=== PATIENT | female | born 1970 | race Caucasian/White ===

== ENCOUNTER 2025-04-14 19:29 | Emergency (ER) | payer BC ==
[~2025-04-14] VITALS: Ht 160 cm; Wt 72.7 kg
[2025-04-14 20:25] LABS: MEAN PLATELET VOLUME 8.1 FL (7.4-10.4); RED CELL DISTRIBUTION WIDTH 13.0 % (11.5-14.5)
[2025-04-14 20:50] LABS: CREATININE 0.76 MG/DL (0.40-0.90); PRO BRAIN NATRIURETIC PEPTIDE 48 PG/ML (0-125); TOTAL CARBON DIOXIDE 30.3 MMOL/L (24-32); eCRCL 70 ML/MIN; eGFR 79 ML/MIN
[2025-04-14 21:36] VITALS: TEMP 97.6
[2025-04-14] MEDS: LIDOcaine 2% Viscous 15ml cup MM ONE (23:13)
[2025-04-14] MEDS: mag hydrox/Alum hydrox/simeth 30ml oral suspension PO ONE (23:14)
--- NOTE | 2025-04-14 23:38 | Physician Documentation ---
History of Present Illness ~ Chief Complaint: Chest Pain Stated Complaint: CHEST PAIN Time Seen by MD: 21:11 [facility] 54-year-old female presented to the ED with acute chest wall pain. She denied significant past medical history and reported recent initiation of gym-based physical activity. Pain was described as localized, reproducible with palpation, and without associated dyspnea, diaphoresis, syncope, or other concerning features. 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 Allergies: Coded Allergies: No Known Allergies (Unverified , 04/14/25) Active Prescriptions See Medication Reconciliation Form. Review of Systems ROS As stated above in the HPI, otherwise all systems are reviewed and negative. Physical Exam Vital Signs: Temperature: 97.6, Source: Temporal, Heart Rate: 82, Respiratory Rate: 17, BP: 159/86, Pulse Oximetry: 99, Weight: 72.700 Oxygen Flow Rate: 0 Physical Exam VITALS: Reviewed and as above. GENERAL: Alert, no apparent distress. HEENT: Normocephalic, atraumatic, PERRL, EOMI, dry mucosa, no erythema RESPIRATORY: Lungs clear, normal breath sounds, no respiratory distress. CHEST: No accessory muscle use, no retractions CV: Regular rate, rhythm, no edema, no murmur, No: JVD GI: Soft, non-tender, bowels sounds present, no rebound, guarding, or rigidity BACK: No CVA tenderness, or swelling MUSCULOSKELETAL No deformities, no edema SKIN: Warm and dry, no rash NEURO: Oriented x4, No motor or sensory deficit PSYCH: Normal mood and affect, no agitation Progress Results/Orders Results/Orders Completed Orders - BERNIE MOLINA Acetaminophen 325mg Tablet (Tylenol Tabl (04/14/25 21:55) Medications Received in ER Medications (Trade) Dose Ordered Sig/Roge Route PRN Reason Start Time Stop Time Status Last Admin Dose Admin (Xylocaine 2% Viscous 15mL cup) 15 ml ONCE ONCE MM 04/14/25 22:05 04/14/25 22:06 DC 04/14/25 23:13 15 ML (Maalox oral suspension) 30 ml ONCE ONCE PO 04/14/25 22:05 04/14/25 22:06 DC 04/14/25 23:14 30 ML (Tylenol tablet) 975 mg ONCE ONCE PO 04/14/25 21:55 04/14/25 22:07 DC 04/14/25 23:13 975 MG Vital Signs 04/14/25 04/14/25 19:51 21:36 Temp 97.6 97.6 Pulse 90 82 Resp 15 17 B/P (MAP) 175/76 159/86 (110) Pulse Ox 99 99 O2 Flow Rate 0 Laboratory Tests Test 04/14/25 20:08 04/14/25 22:12 White Blood Count 6.8 Red Blood Count 4.79 Hemoglobin 14.2 Hematocrit 41.7 Mean Corpuscular Volume 87.0 Mean Corpuscular Hemoglobin 29.6 Mean Corpuscular Hemoglobin Concent 34.0 Red Cell Distribution Width 13.0 Platelet Count 272 Mean Platelet Volume 8.1 Neutrophils (%) (Auto) 54.3 Lymphocytes (%) (Auto) 34.5 Monocytes (%) (Auto) 6.8 Eosinophils (%) (Auto) 3.6 Basophils (%) (Auto) 0.8 Neutrophils # (Auto) 3.7 Lymphocytes # (Auto) 2.3 Monocytes # (Auto) 0.5 Eosinophils # (Auto) 0.2 Basophils # (Auto) 0.1 CBC Comment Sodium Level 142 Potassium Level 3.5 Chloride Level 104 Carbon Dioxide Level 30.3 Anion Gap 8 Blood Urea Nitrogen 13 Creatinine 0.76 Estimated GFR/1.73 m2 79 BUN/Creatinine Ratio 17.1 Glucose Level 201 H Calcium Level 9.0 Troponin I High Sensitivity < 4 L 4 Troponin I High Sens Percent Delta Troponin I Hi Sens Absolute Change Pro-B-Type Natriuretic Peptide 48 Albumin 3.9 Chemistry Comments Medical Decision Making Additional information obtaine: other Findings 54-year-old female presented to the ED with acute chest wall pain. She denied significant past medical history and reported recent initiation of gym-based physical activity. Pain was described as localized, reproducible with palpation, and without associated dyspnea, diaphoresis, syncope, or other concerning features. 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 Initial evaluation focused on rapid exclusion of life-threatening etiologies per ACC/AHA guidelines. Serial high-sensitivity troponins were negative, as were all laboratory studies. 12-lead ECG showed no ischemic changes. Patient is a heart score of 1 at this time. Chest X-ray was unremarkable, with no evidence of pulmonary, pleural, or bony pathology. Physical exam revealed chest wall tenderness, supporting a musculoskeletal etiology. Given the absence of cardiac, pulmonary, or gastrointestinal red flags, and a negative cardiac workup, the diagnosis of musculoskeletal chest wall strain secondary to recent physical activity was established. The patient received a GI cocktail to assess for gastrointestinal discomfort and acetaminophen for analgesia. Ketorolac was withheld due to multiple pre-arrival doses of aspirin, in accordance with FDA guidance to avoid increased bleeding risk with concomitant NSAID and aspirin use. Disposition: Per ACC consensus, low-risk patients with negative cardiac evaluation may be safely discharged without further cardiac testing. The patient was counseled on conservative management, including rest, acetaminophen as needed, and gradual return to activity. She was advised to follow up with her PCP or absence management consultant within 14-30 days for continuity of care. Return precautions for worsening pain, new symptoms, or signs of cardiac/respiratory compromise were discussed. Summary: This case demonstrates evidence-based exclusion of acute coronary syndrome and other life-threatening causes, with diagnosis and management of musculoskeletal chest wall pain per current guidelines. Differential Dx:Considerations: Include: Chest wall contusion, Flail chest, Myocardial contusion, Pneumothorax, Pulmonary contusion, Rib fracture, Renal contusion, Splenic fracture, Tension pneumothorax, Other Departure Disposition: 01 HOME / SELF CARE / HOMELESS Impression: Primary Impression: Chest pain Additional Impressions: Chest wall pain Musculoskeletal pain Condition: Stable Discharge Instructions: Chest Wall Pain, Musculoskeletal Pain Additional Instructions: You were evaluated in the emergency department for chest pain. After a thorough assessment, including blood tests, an EKG (heart tracing), and a chest X-ray, your pain was diagnosed as musculoskeletal chest wall strain, likely related to recent physical activity. No signs of heart attack or other serious heart problems were found. Your HEART score is 1, which means you are at very low risk for a major heart problem in the next 30 days. The HEART score is a tool doctors use to estimate the risk of heart-related events. Scores of 03 are considered low risk, and most patients with these scores do very well after discharge. What to expect: Musculoskeletal chest wall pain often improves with rest and [id number] pain medications like acetaminophen (Tylenol). You may notice soreness for a few days, especially with movement or deep breaths. What to do at home: Rest and avoid strenuous activity until your pain improves. Use acetaminophen as needed for pain relief. Apply ice or heat to the sore area if it helps. Gradually return to exercise as tolerated. When to seek medical attention: Return to the emergency department or contact your doctor immediately if you develop any of the following: Chest pain that is severe, feels like pressure, or spreads to your arm, neck, or jaw Shortness of breath, dizziness, fainting, or sweating Nausea or vomiting Any new or worsening symptoms Follow-up: Schedule a visit with your primary care provider or absence management consultant if your pain does not improve, or if you have any concerns about your heart health. Summary: Your evaluation today shows you are at very low risk for a heart problem. Your pain is most likely from muscle strain. With rest and simple treatments, you should recover well. If you have any new or concerning symptoms, seek care right away. Please follow up with your primary care provider. Please return to the emergency department if you have any worsening or recurrent symptoms or any additional concerning symptoms that we discussed here today i.e. increased chest pain shortness of breath chest pain that radiates lightheadedness dizziness chest pressure nausea vomiting diarrhea or any other symptoms we discussed here today. Referrals: NO PRIMARY CARE PROVIDER (PCP) Education Educated: Patient Educated regarding: diagnosis, treatment, need for follow up Signature Scribe Signature: A Attestation: Scribed for Bernie Molina by GIOVANNY Kingsley . 04/14/25 23:40 BERNIE MOLINA Apr 14, 2025 23:38
[2025-04-15] VITALS: BP 132/81; PULSE 77; RESP 16; O2SAT 97
--- NOTE | 2025-04-15 05:26 | ELECTROCARDIOGRAPH REPORT ---
[facility] Test Date: 2025-04-14 Test Time: 19:56:17 Pat Name: MARKUS GARCIA Department: EMERGENCY ROOM [id number] Room: Gender: F Logistics Operations Manager: : 1970 Requested By: ROLDAN BAUM Order Number: [id number] Reading MD: Dr. BRIGETTE Garay Measurements Intervals [place] Rate: 81 P: 0 ID: 0 QRS: 106 QRSD: 95 T: 49 QT: 380 QTc: 441 Interpretive Statements normal sinus rhythm Right axis deviation Low voltage, precordial leads Baseline wander in lead(s) V2 Electronically Signed On 04-17-2025 11:44:[address] BRIGETTE Garay Please click the below link to view image of tracing.
--- NOTE | 2025-04-15 08:44 | RADIOLOGY REPORT ---
CHEST RADIOGRAPH Indication: CP Technique: Single frontal view of the chest was obtained Comparison: None FINDINGS: Lines and Tubes: None Lungs: No focal consolidation. Pleura: No effusion. No pneumothorax. Cardiomediastinal contours: Unremarkable Bones: No acute osseous abnormality. IMPRESSION: No acute cardiopulmonary disease.
== END 2025-04-15 00:05 | disposition home or self-care (01) ==
LOC: ER 19:30
DX: R07.89 Other chest pain (principal); M79.18 Myalgia, other site; R06.02 Shortness of breath
CPT/HCPCS: 36415; 71045; 80048; 83880; 84484; 85025; 93005; 99285